=== PATIENT | male | born 1980 | race Caucasian/White ===

== ENCOUNTER 2022-05-06 11:21 | Outpatient (REF) | payer OTHER, MEDICAID, SELFPAY ==
[2022-05-06 12:15] LABS: Influenza A PCR NEGATIVE (Negative); Influenza B PCR NEGATIVE (Negative); Resp Syncy Virus RNA Qual PCR NEGATIVE (Negative); SARS COV2 PCR INHOUSE NEGATIVE (Negative)
== END 2022-05-06 11:22 | disposition home or self-care (01) ==
LOC: HO.LNP 11:21
PROVIDERS: Visit Provider Physician Assistant Medical
DX: R05.9 Cough, unspecified (principal); Z20.822 Contact with and (suspected) exposure to COVID-19
CPT/HCPCS: 0241U

== ENCOUNTER 2023-08-09 08:08 | Outpatient (AMB) | payer OTHER, SELFPAY ==
--- NOTE | 2023-08-09 08:47 | AM.OFFWIN_ITS ---
Intake Vital Signs 08/09/23 08:49 Height 6 ft 2 in Weight 185 lb BMI 23.7 BP 122/70 Blood Pressure Location Lt brachial Position Sitting Pulse 80 Pulse Source Pulse Oximeter Temp 98.0 F Temp Source Oral Pulse Oximetry (%) 97 Intake Visit Reasons: EP chest congestion cough [id number] Intake Note: pt s here for c.o chest congestion, cough, had been pos for covd since sunday Patient Tobacco Use Status: Current everyday Tobacco user Allergies Tetracyclic Antidepressants [TETRACYCLIC ANTIDEPRESSANTS] Allergy (Unknown, Verified 08/09/23 08:48) UNKNOWN Do you need a note to return to daycare/school/sports/work: Yes HPI HPI Comments History of Present Illness Details 42 y/o male patient who presents to walk in clinic with c/o cough, wheezing, Asthma excer and +COVID infection. Pt reports testing Sunday. at home sick with COVID. H/o Asthma, but does not use any medication. Denies fevers, chills, nausea or vomiting. Reports SOB, wheezing and CP from coughing. REPLACED BY [facility] Social History Patient Tobacco Use Status: Current everyday Tobacco user Review of Systems Const All systems reviewed & are unremarkable except as noted in HPI and below Physical Exam Vital Signs: Last Vital Signs Temp 98.0 F 08/09/23 08:49 Pulse 80 08/09/23 08:49 BP 122/70 08/09/23 08:49 Pulse Ox 97 08/09/23 08:49 BMI result Body Mass Index 23.7 Const General: comfortable and no acute distress Orientation/consciousness: patient oriented x3 HEENT Head: Yes normocephalic Ears: external ears normal and TM's normal bilaterally General nose exam: No nasal discharge present and Abnormal mucous membranes and turbinates present boggy and erythematous Face and sinus: Yes sinuses nontender Mouth: moist mucous membranes Throat: Yes uvula midline and Yes postnasal drainage Resp Effort & Inspection: normal respiratory effort, able to speak in complete sentences and Actively coughing Auscultation: no crackles, no rales, rhonchi and wheezes scattered wheezes Cardio Rate: regular rate Rhythm: regular rhythm Neuro General: patient oriented x3 Assessment & Plan Assessment & Plan (1) Asthma with acute exacerbation in adult: Code(s): J45.901 - Unspecified asthma with (acute) exacerbation Qualifiers: Asthma persistence: persistent Asthma severity: moderate Qualified Code(s): J45.41 - Moderate persistent asthma with (acute) exacerbation Plan: - Chest Xray - Inoffice Neb Tx - Predni - Sent Albuterol inhaler to pharmacy - Acetaminophen for pain relief. (2) COVID-19: Code(s): U07.1 - COVID-19 Plan: - Rest - OTC cold remedies - Take medications as directed (3) Cough in adult: Code(s): R05.9 - Cough, unspecified Plan: - OTC cold remedies - [place] Orders: Orders AMB Nebulizer Treatment Today J45.41 - Moderate persistent asthma with (acute) exacerbation XR chest 2V Today J45.41 - Moderate persistent asthma with (acute) exacerbation Medications: New prednisone 50 mg PO DAILY 5 days 5 tabs 0RF J45.41 - Moderate persistent asthma with (acute) exacerbation, U07.1 - COVID-19 albuterol sulfate 90 mcg/actuation 2 puffs inhalation Q4-6H PRN 8.5 grams 0RF shortness of breath or wheezing J45.41 - Moderate persistent asthma with (acute) exacerbation, U07.1 - COVID-19 ipratropium-albuterol 0.5 mg-3 mg(2.5 mg base)/3 mL 3 mL inhalation ONCE 3 mL 0RF J45.41 - Moderate persistent asthma with (acute) exacerbation benzonatate 100 mg PO TID 30 caps 0RF R05.9 - Cough, unspecified [id number]-[id number] 5-10-100 mg/5 mL (Adult Robitussin Peak Cold M-S) 10 mL PO Q4H PRN 237 mL 0RF cold symptoms R05.9 - Cough, unspecified Coding Level of Care Code Est Pt Level 3 (70537) Diagnoses Moderate persistent asthma with acute exacerbation in adult J45.41 Asthma persistence: persistent Asthma severity: moderate COVID-19 U07.1 Cough in adult R05.9 Time Spent (min) 15
[2023-08-09 08:49] VITALS: BP 122/70; PULSE 80; TEMP 36.7; O2SAT 97; BMI 23.7
== END 2023-08-09 09:47 | disposition home or self-care (01) ==
PROVIDERS: Visit Provider Nurse Practitioner Family
DX: J45.41 Moderate persistent asthma with (acute) exacerbation (principal); U07.1 COVID-19; R05.9 Cough, unspecified
CPT/HCPCS: 99213